=== PATIENT | male | born 1950 | race Caucasian/White ===

== ENCOUNTER → 2020-01-05 | Day surgery (SDC) | payer OTHER ==
[~2020-01-05] VITALS: Ht 175.3 cm; Wt 81.7 kg
[~2020-01-05] MED LIST: ALBUTEROL2.5 MG/31 INH; ATORVASTATIN CA80 MG PO; BUPROPION HCL150 M1 PO; EXCEDRIN MIGRA1 EAC1 PO; FLAX SEED OIL1000 MG PO; LORAZEPAM 1 MG T1 MG PO; MULTI VITAMIN1 EACH PO; OMEPRAZOLE40 MG PO; TAMSULOSIN HCL0.4 MG PO; TIZANIDINE4 MG/1 TA1; TYLENOL EXTRA500 MG PO; VENTOLIN HFA 1818 GM INH; VITAMIN C1000 MG PO; ZETIA10 MG PO
[2020-01-05 12:36] VITALS: BP 152/91
--- NOTE | 2020-01-05 16:29 | EKG ---
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
--- NOTE | 2020-01-06 14:07 | PATH ---
[facility] [place] [address] PATHOLOGY RPT PROCEDURE Name: NASREEN RAPHAEL I Room #: REG [facility]#: [id number] Admission: 01/05/20 Date of : 50 Discharge: Report #: [id number] Path Case #: [id number] [facility] Accession Number: [id number] . 01 Material submitted: . lid - RIGHT UPPER LID LESION,FS. Modifiers: right, upper . 01 Clinical history: . Neoplasm of uncertain behavior of connective and other soft tissue. . 02 Frozen section diagnosis: . FROZEN SECTION DIAGNOSIS: (Virgen Galeana M.D.) . FSA1. Skin, right upper lid lesion, excision: - BASAL CELL CARCINOMA. - SIDE MARGINS FREE. 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 . These findings are discussed with Dr. Zaheer [place] in OR6 at [facility] and a written report is placed in the patient's chart. . FROZEN SECTION GROSS DESRIPTION: The specimen is received fresh from the OR labeled with the patient's name, and "right upper lid lesion" consists of an inverted triangular specimen measuring 1.2 x 1.0 x 0.5 cm. The specimen has its base towards the inferior margin. The superior to medial border is inked black, the inferior border is inked orange (represents the eyelid), the inferolateral half is inked blue and the superolateral half is inked green. At this point the specimen is serially sectioned and entirely submitted for frozen section as FSA1, this is subsequently submitted for permanent sections as A1. (IUV/db; 01/05/2020) . Frozen section performed at [facility], [address], [place] [address]. IZV/LBQ . 02 Diagnosis: Skin, right upper lid lesion, excision: - BASAL CELL CARCINOMA, NODULOCYSTIC TYPE. - EXTENDS DOWN TO THE TARSAL PLATE CONJUNCTIVA (PLEASE SEE COMMENT). - Side margins and deep margin free in the remainder of the specimen. . (IUV:blake; 01/06/2020) S 01/06/2020 1059 Local [facility] [address] [place] [address] PATHOLOGY RPT PROCEDURE Name: NASREEN RAPHAEL I Room #: REG [facility].#: [id number] Admission: 01/05/20 Date of : 50 Discharge: Report #: [id number] Path Case #: [id number] . 02 Comment: Examination shows a nodulocystic-type basal cell carcinoma present predominantly at the inferior most aspect of the specimen (eyelid). It extends to the tarsal plate conjunctiva (deep margin at this portion) as interpreted at the time of the frozen section. The side margins here are free of malignancy. The side margins within the remainder of the specimen along with the deep margin elsewhere are free of malignancy. Focal skeletal muscle invasion is identified. Definitive perineural invasion is not identified. . The presence of the tumor at the tarsal plate conjunctiva is relayed to Dr. [place] at approximately 11:00 a.m. on 01/06/2020. (IUV:blake; 01/06/2020) . 02 Electronically signed: . Virgen Galeana MD, Pathologist NPI- [id number] . 01 Gross description: . SEE FROZEN SECTION GROSS DESCRIPTION. /LBQ 01/06/2020 0926 Local . 02 Microscopic: . . . 02 Pathologist provided ICD-10: C44.1121 . 02 CPT . 402140, 200167 Specimen Comment: A courtesy copy of this report has been sent to [phone] Specimen Comment: Report sent to Performed at: [address], [place] [id number] MD Carlos Weldon MD Phone: [phone] Performed at: [address] [id number] MD Virgen Galeana MD Phone: [phone]
--- NOTE | 2020-01-09 06:17 | O ---
[facility] [address] [place] [address] OPERATIVE REPORT Name: NASREEN RAPHAEL I Room #: REG [facility]#: [id number] Admission: 01/05/20 Attend Phys: Zaheer [place] MD Discharge: Date of : 50 Report #: [id number] THIS REPORT FOR: cc: Lewis Hoskins MD,[place],Zaheer Reina MD ~ CC: [place] DATE OF SERVICE: 01/05/2020 PREOPERATIVE DIAGNOSIS: Tumor of the right upper lid. POSTOPERATIVE DIAGNOSIS: Tumor of the right upper lid, basal cell carcinoma. PROCEDURE: Excision of tumor of right upper lid with frozen section, control of margins, myocutaneous flap repair of defect. SURGEON: Zaheer [place] MD. PERSONAL DEVELOPMENT MENTOR: None. ANESTHESIA: MAC. COMPLICATIONS: None. INDICATIONS FOR SURGERY: This pleasant 68-year-old gentleman has a nodular lesion in his left upper lid that appears to be a basal cell carcinoma. He presents today for excision of this lesion with subsequent repair of that defect. Informed consent was obtained to include but not limited to the potential risk for loss of vision, bleeding, infection, failure to improve the problem, the potential need for further surgery or treatment. DESCRIPTION OF PROCEDURE: The patient was taken to the operating room where 2% Xylocaine with epinephrine mixed with equal parts of 0.75% Marcaine with Wydase was administered transcutaneously and transconjunctivally to the right upper lid, the right lateral canthus and the right infratemporal fossa. The patient was subsequently prepped and draped in the usual sterile fashion. A fine tip skin marking pen was used to outline the lesion including approximately 1-2 mm of normal appearing tissue. The drawing was then taken up to a point at the arcus marginalis. The incisions were then made perpendicularly across the eyelid margin and drawn back up to that point. Hemostasis was achieved with diligent pinpoint monopolar cautery. The specimen was then oriented on a drawing for the waiting pathologist. She snap froze that specimen and found [address] [place] [address] [address] OPERATIVE REPORT Name: NASREEN RAPHAEL I Room #: REG [facility]..#: [id number] Admission: 01/05/20 Attend Phys: Zaheer [place] MD Discharge: Date of : 50 Report #: [id number] that there indeed was a large basal cell carcinoma in the middle of the tumor. The margins were clear peripherally. She felt that there may be a squamous cell carcinoma in situ superiorly in the conjunctiva. With that information at hand, the decision was made to repair the basal cell defect and not to excise further tissue. A myocutaneous flap was then developed laterally to be rotated back into the medial defect. Hemostasis was re-achieved. The flap was then advanced and secured with multiple interrupted buried 5-0 Vicryl sutures deep. The tarsal plate was then reapproximated with interrupted 5-0 Vicryl sutures. The eyelid margin was reapproximated with interrupted 7-0 Vicryl sutures. The subcutaneous structures and the skin were then closed with buried Vicryl sutures and then a final closure with 6-0 plain. The wounds were then cleaned and dressed with erythromycin ointment. The patient was subsequently transported to the recovery area having tolerated the procedures well with no anesthetic or operative complications being noted. <ELECTRONICALLY SIGNED> By: Zaheer [place] MD 01/09/20 0617 1532 1608 Zaheer [place] MD /nt
== END | disposition home or self-care (01) ==
LOC: OR 06:54
DX: C44.1121 Basal cell carcinoma of skin of right upper eyelid, including canthus (principal); I10 Essential (primary) hypertension; K21.9 Gastro-esophageal reflux disease without esophagitis; F41.9 Anxiety disorder, unspecified; G47.30 Sleep apnea, unspecified; J45.909 Unspecified asthma, uncomplicated; Z98.890 Other specified postprocedural states; Z79.899 Other long term (current) drug therapy; Z87.891 Personal history of nicotine dependence; Z88.2 Allergy status to sulfonamides
CPT/HCPCS: 50010; 50101; 50386; 50398; 51636; 56528; 56531; 62110; 62850; 70005